=== PATIENT | female | born 1980 | race Two or more races ===

== ENCOUNTER 2018-01-19 22:19 | Emergency (ER) | payer MEDICAID ==
[~2018-01-19] VITALS: Ht 170.2 cm; Wt 108.9 kg
[2018-01-19 23:00] VITALS: BP 122/82
[2018-01-19 23:16] VITALS: BP 122/82
--- NOTE | 2018-01-21 14:27 | Emergency Room Report ---
History of Present Illness General Chief Complaint: Medical Clearance Source: Patient Present Illness HPI Patient presents for medical clearance she has a history of diabetes Was detained by police Denies any headache denies any chest pain Denies any back or flank pain Does not have any other medical complaint at this time denies any vomiting or diarrhea Patient reports that she is fairly noncompliant with her medications Allergies: Coded Allergies: No Known Allergies (Unverified , 01/19/18) Patient History Past Medical History: see triage record Pertinent Family History: none Last Menstrual Period: "on my period" Reviewed Nursing Documentation: PMH: Agreed; PSxH: Agreed Nursing Documentation-PMH Hx Diabetes: Yes Review of Systems All Other Systems: negative except mentioned in HPI Physical Exam Vital Signs Date Time Temp Pulse Resp B/P (MAP) Pulse Ox O2 Delivery O2 Flow Rate FiO2 01/19/18 22:20 98.2 88 18 129/83 99 Room Air 98.2 Sp02 EP Interpretation: reviewed, normal General Appearance: well appearing, no apparent distress Head: normocephalic, atraumatic Eyes: bilateral eye PERRL, bilateral eye EOMI ENT: hearing grossly normal, normal pharynx, TMs + canals normal, uvula midline Neck: full range of motion, supple, no meningismus, no bony tend Respiratory: lungs clear, normal breath sounds, no rhonchi, no respiratory distress, no retraction, no accessory muscle use Cardiovascular #1: normal peripheral pulses, regular rate, rhythm, no edema, no gallop, no JVD, no murmur Gastrointestinal: normal bowel sounds, non tender, soft, no mass, no organomegaly, non-distended, no guarding, no hernia, no pulsatile mass, no rebound Musculoskeletal: normal inspection Neurologic: oriented x3, responsive, sensory intact Psychiatric: mood/affect normal Skin: normal color, no rash, warm/dry, palpation normal Lymphatic: normal inspection, no adenopathy Medical Decision Making Diagnostic Impression: Primary Impression: hyperglycemia ER Course Given the patient's presentation and history Accu-Chek was obtained it is over 350 therefore patient was given subcutaneous insulin Does not show any signs of acidosis and will have close outpatient follow-up With kerline Lopez follow-up in the morning Last Vital Signs Date Time Temp Pulse Resp B/P (MAP) Pulse Ox O2 Delivery O2 Flow Rate FiO2 01/19/18 23:16 98.2 77 18 122/82 99 Room Air 98.2 Status: improved Disposition: D/C TO LAW ENFORCEMENT IN [facility] Condition: Improved Departure Forms: Long-Term Clearance Patient Instructions: Type 1 Diabetes Mellitus, Adult Additional Instructions: follow-up kerline Lopez in the morning Husam Oliva DO Jan 21, 2018 14:27
== END 2018-01-19 23:16 ==
LOC: EMR 22:41
DX: E11.65 Type 2 diabetes mellitus with hyperglycemia (principal); Z91.14 Patient's other noncompliance with medication regimen
CPT/HCPCS: 96372; 99283; J1815